=== PATIENT | male | born 1955 | race Caucasian/White ===

== ENCOUNTER 2020-04-15 06:01 | Day surgery (SDC) | payer OTHER ==
[~2020-04-15] VITALS: Ht 167.6 cm; Wt 99.4 kg
[~2020-04-15 06:01] MED LIST: ASPI325 PO; ASPI81EC PO; Apple Cider Vi300 MG PO; Aspir 8181 MG PO; CALCA500CH PO; CARV25 PO; Ciloxan5 ML RIGHTEYE; EFFIENT PO; FISH OIL 1,2001 EAC7 PO; FISH1000 PO; Garlic1 EAC1 PO; HYDCHL25 PO; LISI20 PO; NIAC500 PO; OMEP20ER PO; ROSU10TA PO
[2020-04-15] MEDS ORDERED: Crestor20 MG PO (06:28)
--- NOTE | 2020-04-15 11:35 | NUR ---
PT ARRIVED TO UNIT ON OWN BED, A/O X4, PLEASANT/COOPERATIVE, POST OP VS COMMENCED AND STABLE, DENIES PAIN, DENIES N/V, GOOD CAPILLARY REFILL, BULKY DRESSINGS X 3 C/D/I, SPINAL ANESTESIA WITH SENSATION L4-5. PT PROVIDED WITH ORIENTATION TO ROOM/CALL LIGHT, PROVIDED WITH FLUIDS AND SNACKS
--- NOTE | 2020-04-15 16:07 | NUR ---
PT WORKING WITH OT, HAS WORKED WITH PHYSICAL THERAPY THIS AFTERNOON WELL, HAS BEEN RECLINING SINCE THERAPY, APPROX 1 HR
--- NOTE | 2020-04-15 17:18 | NUR ---
shift summary: post op vss and complete, pt has worked with PT/OT, tolerated PO intake, has voided, is up in chair, rates pain controlled at 1/10. pt remains a/0 x 4, pleasant/cooperative, Llateral knee and L hip surgical sites c/d/i with bulky gauze dressing.
[2020-04-16 05:04] LABS: BASOPHILS ABSOLUTE AUTO 0.02 K/mm3 (0.00-0.23); BASOPHILS PERCENT AUTO 0 % (0-2); EOSINOPHILS ABSOLUTE AUTO 0.01 K/mm3 (0.00-0.68); EOSINOPHILS PERCENT AUTO 0 % (0-6); Hematocrit 39.7 % (37.0-53.0); Hemoglobin 13.9 g/dL (13.5-17.5); IMMATURE GRAN ABSOLUTE AUTO 0.05 K/mm3 (0.00-0.10); IMMATURE GRAN PERCENT AUTO 0 % (0-1); LYMPHOCYTES ABSOLUTE AUTO 0.88 K/mm3 (0.84-5.20); LYMPHOCYTES PERCENT AUTO 7 % (21-46); MONOCYTES ABSOLUTE AUTO 1.22 K/mm3 (0.16-1.47); MONOCYTES PERCENT AUTO 10 % (4-13); Mean Corpuscular HGB 30.4 pg (26.0-34.0); Mean Corpuscular Volume 87 fL (80-100); Mean Platelet Volume 9.7 fL (9.1-12.4); NEUTROPHILS ABSOLUTE AUTO 10.57 K/mm3 (1.96-9.15); NEUTROPHILS PERCENT AUTO 83 % (41-73); Platelet Count 231 K/mm3 (150-400); RDW Coefficient Variation 12.4 % (11.7-14.2); RDW Standard Deviation 39.4 fL (35.1-46.3); Red Blood Cell Count 4.57 M/mm3 (4.30-5.90); White Blood Cell Count 12.75 K/mm3 (4.00-11.30)
[2020-04-16 05:41] LABS: Anion Gap 5 mmol/L (6-16); Blood Urea Nitrogen 18 mg/dL (8-24); Bun/Creatinine Ratio 16.8 (12.0-20.0); CO2, Blood 31 mmol/L (21-32); Calcium, Blood 8.8 mg/dL (8.5-10.1); Chloride, Blood 103 mmol/L (98-108); Creatinine, Blood 1.07 mg/dL (0.60-1.20); Glomerular Filtration Rate >60 (60-); Glucose, Blood 112 mg/dL (70-99); Potassium, Blood 3.9 mmol/L (3.5-5.5); Sodium, Blood 139 mmol/L (136-145)
--- NOTE | 2020-04-16 06:39 | NUR ---
SHIFT SUMMARY LYING IN SEMI FOWLERS WITH EYES OPEN WHILE WATCHING TV. AAO X3, [place] FOLLOWS ALL COMMANDS. PLESANT AND COOPERATIVE WITH CARE. ABLE TO AMBULATE WITH STANDBY ASSIST, GB/FWW. LEFT HIP DRESSING C/D/I WITH POLAR DANELLE IN PLACE. LEFT FA SL 18G PIV IS PATENT, FLUSHING WITH EASE. TOLERATED DIET WELL. STATES HE FEELS CONSTIPATED, BOWEL CARE IN PROGRESS. DENIES PAIN, DISCOMFORT, OR FURTHER NEEDS AT THIS TIME. SAFETY MEASURES IN PLACE. HAND OFF GIVE TO Alberto AGUIRRE RN USING SBAR DURING BEDSIDE REPORT.
[2020-04-16] MEDS ORDERED: ROXICODONE5 MG PO (09:43)
[2020-04-16] MEDS ORDERED: PROM12.5S PO (09:44)
[2020-04-16] MEDS ORDERED: SULTRIDS PO (09:45)
--- NOTE | 2020-04-16 11:11 | NUR ---
0834 DISCHARGE DISCUSSED WITH PATIENT THAT PLAN IS FOR DISCHARGE TODAY AFTER ,EETS PT/OT. DISCUSSED WITH PATIENT HOME EQUIPMETN AND THERAPY FOLLOW UP. PT ASKING ABOUT TALKING WALKER AND TOILET RISER OUT OF ROOM AT TIME OF DISCHARGE. DISCUSSED WITH PATIENT THAT HE SHOULD OF RECEIVED PRESCRIPTIONS FOR NECESSARY EQUIPMENT PRIOR TO ADMISSION. PT TELLS ME HE DOES REMEMBER RECEIVING THE PRESCRIPTIONS FOR WALKER, TOILET RISER, WALKER , DISCUSSED WITH PATIENT THAT HE WILL NEED THESE AVAILABLE AT TIME OF DISCHARGE. DISCUSSED WITH PATIENT OUTPATIENT PT, PT TELLS ME HE DOES NOT HAVE APPOINTMENTS ARRANGED AND THAT HE DOES NOT HAVE TRANSPORTATION TO THERAPY. DISCUSSED WITH PATIENT IMPORTANCE OF FOLLOWING UP WITH THERAPY, PROVIDED PATIENT WITH RESOURCE MANUAL WITH PHONE NUMBERS HE CAN CONTACT FOR POSSIBLE TRANSPORTATION.DISCUSSED THIS PATIENTS DISCHARGE PLAN WITH [facility] DIRECTOR, [place], WHO TELLS ME THAT THIS INFORMATION WAS DISCUSSED WITH PATIENT IN PRE OP CLASS AND THAT PATIENT HAD PRESCRIPTIONS PROVIDED FOR DME AND THAT HE WAS PROVIDED WITH PHONE NUMBERS FOR TRANSPORTATION AT TIME OF [facility] CLASS
--- NOTE | 2020-04-16 11:25 | NUR ---
DISCHARGED TO HOME, PT STATES HE HAS A FRIEND TO TAKE HIM HOME AND THAT HE WILL CHECK WITH FAMILY TO [facility] HE HAS TAKEN THE PRESCRIPTION TO [facility]
== END 2020-04-16 11:24 | disposition home or self-care (01) ==
LOC: ORSCMMR 06:01 → ORD 07:30 → ORSCMMR 07:30 → SURS 11:03 → ORSCMMR 04-16 11:24
PROVIDERS: Orthopaedic Surgery
PROC: 0SRB0JA Replacement of Left Hip Joint with Synthetic Substitute, Uncemented, Open Approach (ICD-10-PCS; principal; 2020-04-15 07:30)
PROC: 8E0YXBZ Computer Assisted Procedure of Lower Extremity (ICD-10-PCS; principal; 2020-04-15 07:30)
DX: M16.12 Unilateral primary osteoarthritis, left hip (principal); I10 Essential (primary) hypertension; I25.2 Old myocardial infarction; E66.01 Morbid (severe) obesity due to excess calories; Z68.37 Body mass index [BMI] 37.0-37.9, adult; N18.9 Chronic kidney disease, unspecified; Z79.899 Other long term (current) drug therapy; Z79.82 Long term (current) use of aspirin
CPT/HCPCS: 36415; 72170; 80048; 83735; 85025; 88300; 97110; 97110-CQ; 97116; 97116-CQ; 97161; 97166; 97530; 97530-CQ; 97535; A9270; C1713; C1776; J0171; J0690; J0735; J1100; J1885; J2250; J2370; J2405; J2704; J2795; J3010; J3370; J7050; J7120

== ENCOUNTER → 2021-05-27 | Outpatient (CLI) | payer OTHER ==
[~2021-05-27] MED LIST changes: +Crestor20 MG PO; +OXYC5 PO; +PROM12.5S PO; +ROXICODONE5 MG PO; +SULTRIDS PO
[2021-05-27 17:58] LABS: BASOPHILS ABSOLUTE AUTO 0.03 K/mm3 (0.00-0.23); BASOPHILS PERCENT AUTO 0 % (0-2); EOSINOPHILS ABSOLUTE AUTO 0.07 K/mm3 (0.00-0.68); EOSINOPHILS PERCENT AUTO 1 % (0-6); Hematocrit 53.6 % (37.0-53.0); Hemoglobin 18.7 g/dL (13.5-17.5); IMMATURE GRAN ABSOLUTE AUTO 0.06 K/mm3 (0.00-0.10); IMMATURE GRAN PERCENT AUTO 0 % (0-1); LYMPHOCYTES ABSOLUTE AUTO 0.92 K/mm3 (0.84-5.20); LYMPHOCYTES PERCENT AUTO 6 % (21-46); MONOCYTES ABSOLUTE AUTO 1.43 K/mm3 (0.16-1.47); MONOCYTES PERCENT AUTO 10 % (4-13); Mean Corpuscular HGB 30.6 pg (26.0-34.0); Mean Corpuscular HGB Conc 34.9 g/dL (31.5-36.5); Mean Corpuscular Volume 88 fL (80-100); Mean Platelet Volume 9.8 fL (9.1-12.4); NEUTROPHILS ABSOLUTE AUTO 11.85 K/mm3 (1.96-9.15); NEUTROPHILS PERCENT AUTO 83 % (41-73); Platelet Count 277 K/mm3 (150-400); RDW Coefficient Variation 12.6 % (11.7-14.2); RDW Standard Deviation 39.9 fL (35.1-46.3); Red Blood Cell Count 6.12 M/mm3 (4.30-5.90); White Blood Cell Count 14.36 K/mm3 (4.00-11.30)
[2021-05-27 18:07] LABS: Albumin, Blood 4.6 g/dL (3.4-5.0); Albumin/Globulin Ratio 1.2 (0.8-1.8); Bilirubin, Total 1.4 mg/dL (0.1-1.0); Bun/Creatinine Ratio 13.7 (12.0-20.0); Calcium, Blood 9.8 mg/dL (8.5-10.1); Creatinine, Blood 1.31 mg/dL (0.60-1.20); Globulin, Blood 3.8 g/dL (2.2-4.0); Potassium, Blood 3.7 mmol/L (3.5-5.5); Total Protein, Blood 8.4 g/dL (6.4-8.2)
== END | disposition home or self-care (01) ==
LOC: LAB SHORT 17:53
PROVIDERS: Chiropractor
DX: R10.13 Epigastric pain (principal)
CPT/HCPCS: 80053; 83690; 85025

== ENCOUNTER 2021-05-28 11:24 | Emergency (ER) | payer OTHER ==
[~2021-05-28] VITALS: Ht 167.6 cm; Wt 101.6 kg
[~2021-05-28 11:24] MED LIST changes: -OXYC5 PO
[2021-05-28 12:06] LABS: BASOPHILS ABSOLUTE AUTO 0.04 K/mm3 (0.00-0.23); BASOPHILS PERCENT AUTO 0 % (0-2); EOSINOPHILS ABSOLUTE AUTO 0.13 K/mm3 (0.00-0.68); EOSINOPHILS PERCENT AUTO 1 % (0-6); Hematocrit 52.9 % (37.0-53.0); Hemoglobin 18.4 g/dL (13.5-17.5); IMMATURE GRAN ABSOLUTE AUTO 0.09 K/mm3 (0.00-0.10); IMMATURE GRAN PERCENT AUTO 1 % (0-1); LYMPHOCYTES PERCENT AUTO 8 % (21-46); MONOCYTES ABSOLUTE AUTO 1.59 K/mm3 (0.16-1.47); MONOCYTES PERCENT AUTO 11 % (4-13); Mean Corpuscular HGB 30.1 pg (26.0-34.0); Mean Corpuscular HGB Conc 34.8 g/dL (31.5-36.5); Mean Corpuscular Volume 86 fL (80-100); Mean Platelet Volume 10.3 fL (9.1-12.4); NEUTROPHILS ABSOLUTE AUTO 11.23 K/mm3 (1.96-9.15); NEUTROPHILS PERCENT AUTO 79 % (41-73); Platelet Count 290 K/mm3 (150-400); RDW Coefficient Variation 12.5 % (11.7-14.2); Red Blood Cell Count 6.12 M/mm3 (4.30-5.90); White Blood Cell Count 14.28 K/mm3 (4.00-11.30)
[2021-05-28 12:28] LABS: Alanine Aminotransfer (ALT/SGP 27 U/L (12-78); Albumin, Blood 4.2 g/dL (3.4-5.0); Albumin/Globulin Ratio 1.1 (0.8-1.8); Alk Phos 82 U/L (50-136); Anion Gap 10 mmol/L (6-16); Aspartate Aminotrans (AST/SGOT 25 U/L (12-37); Bilirubin, Total 1.6 mg/dL (0.1-1.0); Blood Urea Nitrogen 22 mg/dL (8-24); Bun/Creatinine Ratio 21.6 (12.0-20.0); CO2, Blood 24 mmol/L (21-32); Calcium, Blood 9.8 mg/dL (8.5-10.1); Chloride, Blood 99 mmol/L (98-108); Creatinine, Blood 1.02 mg/dL (0.60-1.20); Globulin, Blood 3.9 g/dL (2.2-4.0); Glomerular Filtration Rate >60 (60-); Glucose, Blood 107 mg/dL (70-99); Potassium, Blood 3.4 mmol/L (3.5-5.5); Sodium, Blood 133 mmol/L (136-145); Total Protein, Blood 8.1 g/dL (6.4-8.2)
[2021-05-28] MEDS ORDERED: OXYC5 PO (14:12)
== END 2021-05-28 14:16 | disposition home or self-care (01) ==
LOC: ER 11:24
PROVIDERS: Physician Assistant
DX: K85.90 Acute pancreatitis without necrosis or infection, unspecified (principal); I10 Essential (primary) hypertension; I25.10 Atherosclerotic heart disease of native coronary artery without angina pectoris; Z79.82 Long term (current) use of aspirin; Z79.899 Other long term (current) drug therapy
CPT/HCPCS: 36415; 80053; 83690; 85025; 96374; 96375; 99283-25; J1885; J2405

== ENCOUNTER 2021-07-29 14:35 | Emergency (ER) | payer MEDICARE, OTHER ==
[~2021-07-29] VITALS: Ht 167.6 cm; Wt 104.3 kg
[~2021-07-29 14:35] MED LIST changes: +OXYC5 PO
== END 2021-07-29 16:26 | disposition home or self-care (01) ==
LOC: ER 14:35
DX: T15.02XA Foreign body in cornea, left eye, initial encounter (principal); X58.XXXA Exposure to other specified factors, initial encounter; I10 Essential (primary) hypertension; I25.10 Atherosclerotic heart disease of native coronary artery without angina pectoris; Z79.899 Other long term (current) drug therapy
CPT/HCPCS: 65220; 99283-25; A9270

== ENCOUNTER 2023-08-08 07:15 | Day surgery (SDC) | payer MEDICARE, OTHER ==
[~2023-08-08 07:15] MED LIST changes: +NAPR220 PO; +TAMS.4ER PO; +TRIA50 PO
[2023-08-08] MEDS ORDERED: Metoprolol Tartrate 1 MG/ML 5 ML VIAL IV ONE (16:48)
== END 2023-08-08 23:08 | disposition home or self-care (01) ==
LOC: CT 07:15
DX: I25.10 Atherosclerotic heart disease of native coronary artery without angina pectoris (principal); I25.84 Coronary atherosclerosis due to calcified coronary lesion; R06.02 Shortness of breath; Z98.61 Coronary angioplasty status; I73.9 Peripheral vascular disease, unspecified; I51.7 Cardiomegaly
CPT/HCPCS: 75574; Q9967

== ENCOUNTER 2023-08-21 08:50 | Day surgery (SDC) | payer MEDICARE, OTHER ==
[2023-08-21] VITALS (12 sets, daily range): BP systolic 99–146; BP diastolic 73–93
[~2023-08-21] VITALS: Ht 167.6 cm; Wt 112.9 kg
[~2023-08-21 08:50] MED LIST changes: +Crestor40 MG PO; +DYAZIDE 37.5-21 EACH PO; +ERGO50000 PO; +ESOM20 PO; +EZET10 PO; +FISH OIL 1,0001 EA10 PO; +Isosorbide Mono30 MG PO; +VITAMIN D5000 UNIT PO; +VITAMIN E100 UNI1 PO
[2023-08-21] MEDS ORDERED: FISH OIL 1,0001 EA10 PO (09:43)
[2023-08-21 09:48] LABS: BASOPHILS ABSOLUTE AUTO 0.05 K/mm3 (0.00-0.23); BASOPHILS PERCENT AUTO 1 % (0-2); EOSINOPHILS ABSOLUTE AUTO 0.22 K/mm3 (0.00-0.68); EOSINOPHILS PERCENT AUTO 4 % (0-6); Hematocrit 48.2 % (37.0-53.0); Hemoglobin 16.2 g/dL (13.5-17.5); IMMATURE GRAN ABSOLUTE AUTO 0.02 K/mm3 (0.00-0.10); IMMATURE GRAN PERCENT AUTO 0 % (0-1); LYMPHOCYTES ABSOLUTE AUTO 1.19 K/mm3 (0.84-5.20); LYMPHOCYTES PERCENT AUTO 22 % (21-46); MONOCYTES ABSOLUTE AUTO 0.68 K/mm3 (0.16-1.47); MONOCYTES PERCENT AUTO 13 % (4-13); Mean Corpuscular HGB 29.4 pg (26.0-34.0); Mean Corpuscular HGB Conc 33.6 g/dL (31.5-36.5); Mean Corpuscular Volume 88 fL (80-100); Mean Platelet Volume 9.2 fL (9.1-12.4); NEUTROPHILS ABSOLUTE AUTO 3.29 K/mm3 (1.96-9.15); NEUTROPHILS PERCENT AUTO 60 % (41-73); Platelet Count 242 K/mm3 (150-400); RDW Coefficient Variation 13.2 % (11.7-14.2); RDW Standard Deviation 42.5 fL (35.1-46.3); Red Blood Cell Count 5.51 M/mm3 (4.30-5.90); White Blood Cell Count 5.45 K/mm3 (4.00-11.30)
[2023-08-21 10:02] LABS: Prothrombin Time Results 10.7 Sec (9.7-11.5)
[2023-08-21 10:21] LABS: Albumin, Blood 3.6 g/dL (3.4-5.0); Bilirubin, Total 0.6 mg/dL (0.1-1.0); Bun/Creatinine Ratio 19.1 (12.0-20.0); Calcium, Blood 9.2 mg/dL (8.5-10.1); Creatinine, Blood 1.31 mg/dL (0.60-1.20); Globulin, Blood 3.6 g/dL (2.2-4.0); Potassium, Blood 4.1 mmol/L (3.5-5.5); Total Protein, Blood 7.2 g/dL (6.4-8.2)
[2023-08-21] MEDS ORDERED: Heparin Sodium 1000 Units/ML 10ML MDV ONE (12:56)
[2023-08-21] MEDS ORDERED: NS 250 ML IV ONE (12:56)
[2023-08-21] MEDS ORDERED: Verapamil HCL 2.5 MG/ML 2ML Injection ONE (12:56)
[2023-08-21] MEDS ORDERED: NS 1,000 ML IV ONE ×2 (12:56→13:01)
[2023-08-21] MEDS ORDERED: Nitroglycerin 2 MG/20 ML BTL ONE (12:57)
[2023-08-21] MEDS ORDERED: Midazolam HCl 1MG / ML 2ML Vial ONE (13:01)
[2023-08-21] MEDS ORDERED: FentaNYL Citrate 50 MCG/ML 2 ML Injection ONE (13:01)
--- NOTE | 2023-08-21 14:15 | NUR ---
ASSUMED CARE OF PT POST PROCEDURE. PT AWAKE AND CONVERSING APPROPRIATELY; DENIES CHEST PAIN POST PROCEDURE. MONITOR SB WITH IVCD 49-50'S, B/P 146/93, SPO2 96% RA. L RADIAL SITE NO SWELLING/HEMATOMA, TR BAND IN PLACE; LUE POSITIVE PLEUTH POST TR BAND PLACEMENT.
--- NOTE | 2023-08-21 15:45 | NUR ---
6 CC AIR REMOVED FROM TR BAND, SMALL OOZE NOTICED, 4 CC REINSTILLED; NO SWELLING/HEMATOMA TO L WRIST.
--- NOTE | 2023-08-21 16:05 | NUR ---
REPORT GIVEN TO PEDRO LEMUS; ALL QUESTIONS ANSWERED.
--- NOTE | 2023-08-21 17:37 | NUR ---
TR BAND REMOVED ONE HOUR AFTER CUFF FULLY DEFLATED. AREA WITHOUT BLEEDING, SWELLING, OR HEMATOMA. PT DENIES COMPLAINTS, DENIES NUMBNESS/PAIN. PT VOIDING W/O DIFFICULTY. PT DRINKING, DECLINED FOOD. VSS. VERBAL AND WRITTEN DC INFORMATION GIVEN TO PT WITH CLEAR UNDERSTANDING. DRSG PLACED OVER LEFT RADIAL ART SITE WITH WRIST IMMOBILIZER ON. PT ESCORTED OUT VIA WHEELCHAIR, PT'S SON IS DRIVING PT HOME.
== END 2023-08-21 17:30 | disposition home or self-care (01) ==
LOC: MHTC 08:50
PROVIDERS: Internal Medicine Interventional Cardiology
DX: I25.10 Atherosclerotic heart disease of native coronary artery without angina pectoris (principal); I73.9 Peripheral vascular disease, unspecified; G47.33 Obstructive sleep apnea (adult) (pediatric); G47.8 Other sleep disorders; E78.00 Pure hypercholesterolemia, unspecified; I10 Essential (primary) hypertension; I21.9 Acute myocardial infarction, unspecified; Z78.9 Other specified health status; Z98.61 Coronary angioplasty status; Z95.1 Presence of aortocoronary bypass graft
CPT/HCPCS: 76937; 80053; 85025; 85610; 93455; 99152; 99153; C1769; C1894; J1644; J2250; J3010; J7030; J7050; Q9967